=== PATIENT | female | born 1990 | race Caucasian/White ===

== ENCOUNTER 2019-08-12 06:55 | Inpatient (IN) | payer BC, SELFPAY ==
[2017-03-15 10:13] VITALS: BMI 28.0
[2019-08-12] VITALS (20 sets, daily range): BP systolic 101–119; BP diastolic 60–76; PULSE 68–100; RESP 16; TEMP 36.4–37.1; O2SAT 89–97; BMI 28.5
[2019-08-12] MEDS: Lactated Ringers 1,000 ML 50 ML IV (07:30)
[2019-08-12 07:46] LABS: Absolute Lymphocyte Count 1.92 X10^3/uL (0.83-4.51); Absolute Neutrophil Count 10.4 X10^3/uL (2.0-7.7); Basophil# 0.02 X10^3/uL; Basophil% 0.1 % (0-1); Eosinophil# 0.12 X10^3/uL; Eosinophils% 0.9 % (0-5); Hematocrit 35.1 % (37-47); Hemoglobin 11.5 g/dL (12.0-15.0); Lymphocyte # 1.92 X10^3/ul (4.0); Lymphocyte % 14.3 % (19-41); Mean Corp Hgb Conc 32.8 g/dL (32-36); Mean Corpuscular Hgb 27.3 pg (27.0-32.0); Mean Corpuscular Volume 83.4 fL (81-99); Mean Platelet Vol. 10.6 fl (6.2-12.0); Monocyte# 0.84 X10^3/uL; Monocyte% 6.3 % (0-10); NRBC Flagged by Analyzer 0 % (0-5); Neutrophil # 10.44 X10^3/uL (2.7-7.7); Neutrophil % 77.8 % (47-70); Platelet Count 186 K/mm3 (150-450); RBC Distribution Width CV 13.7 % (11.6-14.6); RBC Distribution Width SD 41.4 fl (35.1-43.9); Red Blood Count 4.21 M/mm3 (4.2-5.4); White Blood Count 13.4 K/mm3 (4.4-11.0)
[2019-08-12] MEDS: Oxytocin 30 units/NS 500 ml 30 UNITS/500 ML IV.SOLN IV (09:26)
--- NOTE | 2019-08-12 10:25 | PCM.HP.OB ---
History Date of Admission: 03/15/17 Final JIMENA: 08/15/19 Gestational age: 39 Weeks and 4 Days History of this : This is a 29 year-old, G [], P [], at 39 weeks gestational age. Surgical History: Surgical History (Last Updated 08/12/19 @ 10:[address] Ludwig Abel) Hx of tonsillectomy Z90.89 Allergies gluten Allergy (Verified 08/12/19 07:47) Abd cramps/diarrhea pain, hives, migraines Home Medications: Home Medications Omeprazole [Prilosec] 20 mg PO BID PRN 10/23/15 Vits [Prenatabs FA ] 1 tab PO DAILY 10/23/15 Smoking Status: Never smoker Alcohol: None Number of Fetus(es): 1 NST - FHR Rate Baby A Baseline: 145 Variability:: Moderate Accelerations:: 15 x 15 Uterine Activity:: Q 2-3 minutes History Past Pregnancies: Past Pregnancies Delivery Date Name GA/ Weeks Outcome Route Wt Infant Sex Labor Length Anesthesia Delivery Location Provider FOB Physical Exam Vitals: Vital Signs Temp Pulse BP 97.7 F L 86 119/68 08/12/19 09:58 08/12/19 09:59 08/12/19 09:59 General: Alert, Oriented x3 Abdomen: Soft, Non Tender, Non-Distended, Gravid Neurological: Cranial nerves II-XII grossly intact MATERIAL STRESS TESTER: Normal external genitalia Estimated gestational size: Appropriate for gestational size Presentation: Cephalic Cervix Dilation (cm): 5 - AROM clear fluid Station: -2 Effacement (%): 80 Assessment/Plan This is a 29 year-old, at 39&4 weeks gestational age. Admit to L&D Elective induction - on pitocin, s/p AROM GBS negative Pain - declines epidural at this time EFW - less than 4500g, patient with adequate pelvis Routine care
[2019-08-12] MEDS: Oxytocin 30 units/NS 500 ml 30 UNITS/500 ML IV.SOLN 334 UNITS IV (12:46)
--- NOTE | 2019-08-12 13:21 | PCM.OPRPT ---
Vaginal Delivery Maternal Presentation: Elective Induction Method of Induction: Pitocin, Amniotomy Amniotic Membrane Rupture Type: Artificial Amniotic Fluid Description: Clear Final JIMENA: 08/15/19 Gestational age: 39 Weeks and 4 Days Date of Procedure: 08/12/19 Pre-Operative Diagnosis: Elective induction Post-Operative Diagnosis: Same Surgery/ Procedure Performed: Spontaneous Vaginal Delivery Type of Anesthesia: Local with 1% lidocaine Description of Procedure: Patient prepped & draped in stirrups when C/C/+2. She pushed to deliver the head. Tight nuchal cord clamped & cut. head then gently guided to allow delivery of anterior and posterior shoulders. No excess traction placed on head. Body delivered and infant placed on maternal abdomen. Placenta delivered with gentle traction. Good uterine tone obtained. Presentation: JACINTA Placental Delivery Description: Expressed Placenta Disposition: [facility] Cord Vessel Description: 3 Vessels Cord Entanglement: Around neck x 1, tight Estimated Blood Loss: 300ml Infant A gender: Male - Daxton (1 minute): 8 (5 minute): 9 Episiotomy Description: None Laceration: 2nd degree - perineal - repaired with 3-0 vicryl Medications given after delivery: IV Pitocin Complications: None
[2019-08-12] MEDS: Acetaminophen 500 MG Tablet 1000 MG PO ×2 (13:52→23:07)
[2019-08-12] MEDS: Senna/Docusate Sodium 1 Tablet PO (23:07)
[2019-08-13 04:00] VITALS: BP 95/55; PULSE 59; RESP 16; TEMP 36.9; O2SAT 98
[2019-08-13 07:32] VITALS: BP 98/59; PULSE 83; RESP 16; TEMP 36.6
--- NOTE | 2019-08-13 10:26 | DCINST_ITS ---
Discharge Diet: No Restrictions Discharge Activity: May Drive, May Shower May resume sexual activity in: 6 weeks Weight Bearing Status: Weight bearing as tolerated Additional Instructions: If you experience any of the following, contact your healthcare provider. * Bleeding that soaks a pad every hour for 2 hours * Fever 100.4 or higher * Unrelieved incision or abdominal pain * Swelling, redness, discharge or bleeding from your incision or episiotomy site * Your incision begins to separate * Problems urinating (including inability to urinate or burning while urinating). * Visual changes * Severe headache * Flu-like symptoms * Pain or redness in one of both of your breasts * Pain, warmth, tenderness or swelling in your legs, especially the calf area * Frequent nausea and vomiting * Symptoms of depression or anxiety If you experience any of the following, call 911 or go to the nearest Emergency Room. * Chest pain * Problems breathing * Seizure activity * Partial or complete paralysis of a body part, slurred speech, weakness or drooping of the face, or a sudden inability to walk or hold your balance Allergies/Adverse Reactions: Allergies gluten Allergy (Verified 08/12/19 07:47) Abd cramps/diarrhea pain, hives, migraines Medications to take at Discharge Omeprazole [Prilosec] 20 mg PO BID PRN 10/23/15 Vits [Prenatabs FA ] 1 tab PO DAILY 10/23/15 Acetaminophen [Tylenol] 1,000 mg PO Q8H PRN PRN tablet 08/13/19 Ibuprofen [Motrin] 600 mg PO Q6H PRN PRN tablet 08/13/19 Primary Care Physician: Lito Quinn MD [Primary Care Provider] - Test Results: Test results from this visit will be discussed in further detail at your follow- up appointment, if applicable.
--- NOTE | 2019-08-13 10:26 | PCM.DCVAG ---
Discharge Diet: No Restrictions Discharge Activity: May Drive, May Shower May resume sexual activity in: 6 weeks Weight Bearing Status: Weight bearing as tolerated Additional Instructions: If you experience any of the following, contact your healthcare provider. Bleeding that soaks a pad every hour for 2 hours Fever 100.4 or higher Unrelieved incision or abdominal pain Swelling, redness, discharge or bleeding from your incision or episiotomy site Your incision begins to separate Problems urinating (including inability to urinate or burning while urinating). Visual changes Severe headache Flu-like symptoms Pain or redness in one of both of your breasts Pain, warmth, tenderness or swelling in your legs, especially the calf area Frequent nausea and vomiting Symptoms of depression or anxiety If you experience any of the following, call 911 or go to the nearest Emergency Room. Chest pain Problems breathing Seizure activity Partial or complete paralysis of a body part, slurred speech, weakness or drooping of the face, or a sudden inability to walk or hold your balance Allergies/Adverse Reactions: Allergies gluten Allergy (Verified 08/12/19 07:47) Abd cramps/diarrhea pain, hives, migraines Medications to take at Discharge Omeprazole [Prilosec] 20 mg PO BID PRN 10/23/15 Vits [Prenatabs FA ] 1 tab PO DAILY 10/23/15 Acetaminophen [Tylenol] 1,000 mg PO Q8H PRN PRN tablet 08/13/19 Ibuprofen [Motrin] 600 mg PO Q6H PRN PRN tablet 08/13/19 Primary Care Physician: Lito Quinn MD [Primary Care Provider] - Test Results: Test results from this visit will be discussed in further detail at your follow-up appointment, if applicable.
--- NOTE | 2019-08-13 10:26 | PCM.PN.OB ---
Subjective: Denies complaints - Physical Exam Vitals/I&O's: Vital Signs Temp Pulse Resp BP Pulse Ox 97.9 F 83 16 98/59 L 98 08/13/19 07:32 08/13/19 07:32 08/13/19 07:32 08/13/19 07:32 08/13/19 04:00 Oxygen Delivery Method Room Air Weight: 187 lb 9.6 oz Body Mass Index (BMI) 28.5 Intake and Output for Last 24 Hours 08/11/19 08/12/19 08/13/19 23:59 23:59 23:59 Intake Total 774.73 / 774.73 Balance 774.73 / 774.73 General: Alert, Oriented x3 Abdomen: Soft, Non Tender, Non-Distended - ff mid & below umb Extremities: No Calf Tenderness Neurological: Cranial nerves II-XII grossly intact Laboratory Results 08/12/19 07:30: Blood Type A POSITIVE, Antibody Screen NEGATIVE Current Medications Acetaminophen (Tylenol) 1,000 mg PO Q8H PRN PRN PRN Reason: Pain Score 1-3/10 Last Admin: 08/12/19 23:07 Dose: 1,000 mg Documented by: Bisacodyl (Dulcolax) 10 mg RECTAL UD PRN PRN Reason: If no BM Dibucaine (Dibucaine) 1 applic TOPICAL TID PRN PRN; Protocol PRN Reason: Discomfort Hydrocortisone (Hytone) 1 applic TOPICAL TID PRN PRN; Protocol PRN Reason: Discomfort Ibuprofen (Motrin) 600 mg PO Q6H PRN PRN PRN Reason: Pain Score 1-3/10 Methylergonovine Maleate (Methergine) 0.2 mg IM X1 PRN PRN Reason: Excess bleeding/uterine atony Ondansetron HCl (Zofran) 4 mg IV Q4H PRN PRN PRN Reason: Nausea Oxycodone HCl (Oxyir) 5 - 10 mg PO Q4H PRN PRN PRN Reason: Pain Score 4-10/10 Senna/Docusate Sodium (Senokot-S, Dang-Colace) 1 - 2 tablet PO DAILY PRN PRN PRN Reason: Constipation Last Admin: 08/12/19 23:07 Dose: 2 tablet Documented by: Simethicone (Mylicon) 80 mg PO PCHS PRN PRN Reason: Indigestion/Stomach pain Sodium Chloride () 5 - 15 ml IV UD PRN PRN Reason: SALINE FLUSH Medical Necessity - Tobacco Use Smoking Status: Never smoker Assessment/Plan PPD#1 D/c home per patient request
[2019-08-13 11:55] VITALS: BP 95/68; PULSE 74; RESP 16; TEMP 37.2
[2019-08-13 14:17] VITALS: BP 95/68; PULSE 74; RESP 16; TEMP 37.2
== END 2019-08-13 14:25 | disposition home or self-care (01) | DRG 807 ==
PROVIDERS: Admitting Provider Obstetrics & Gynecology; PCP Family Medicine; Referring Provider Obstetrics & Gynecology; Visit Provider Obstetrics & Gynecology
DX: O69.1XX0 Labor and delivery complicated by cord around neck, with compression, not applicable or unspecified (principal); O70.1 Second degree perineal laceration during delivery; Z3A.39 39 weeks gestation of pregnancy; Z37.0 Single live birth
CPT/HCPCS: 59025; 59050; 85025; 86850; 86900; 86901; 99218; J7120; G0378

== ENCOUNTER 2021-06-25 04:47 | Inpatient (IN) | payer BC, SELFPAY ==
[2021-06-25] VITALS (18 sets, daily range): BP systolic 116–137; BP diastolic 54–86; PULSE 71–98; RESP 16; TEMP 36.6; O2SAT 97–100; BMI 31.6
[2021-06-25] MEDS: 0.9% Saline Lock 10 ML Syringe IV ×3 (04:55→12:02)
[2021-06-25 05:11] LABS: Absolute Lymphocyte Count 2.14 X10^3/uL (0.83-4.51); Absolute Neutrophil Count 7.2 X10^3/uL (2.0-7.7); Basophil# 0.03 X10^3/uL; Basophil% 0.3 % (0-1); Eosinophil# 0.08 X10^3/uL; Eosinophils% 0.8 % (0-5); Hematocrit 35.3 % (37-47); Hemoglobin 12.3 g/dL (12.0-15.0); Lymphocyte # 2.14 X10^3/ul (0.83-4.51); Lymphocyte % 20.8 % (19-41); Mean Corp Hgb Conc 34.8 g/dL (32-36); Mean Corpuscular Hgb 28.8 pg (27.0-32.0); Mean Corpuscular Volume 82.7 fL (81-99); Mean Platelet Vol. 10.9 fl (6.2-12.0); Monocyte% 7.8 % (0-10); NRBC Flagged by Analyzer 0 % (0-5); Neutrophil # 7.15 X10^3/uL (2.7-7.7); Neutrophil % 69.6 % (47-70); Platelet Count 235 K/mm3 (150-450); RBC Distribution Width CV 14.6 % (11.6-14.6); RBC Distribution Width SD 43.8 fl (35.1-43.9); Red Blood Count 4.27 M/mm3 (4.2-5.4); White Blood Count 10.3 K/mm3 (4.4-11.0)
--- NOTE | 2021-06-25 06:48 | HP.PCM.OB_ITS ---
HPI - General General Date of Admission: 06/25/21 HPI Narrative AL CERON, is a 31 F at 40.4 weeks gestation who presents in spontaneous labor. Patient having regular contractions last night. Denies any loss of fluid or vaginal bleeding. Positive but decreased movement. Pr egnancy complicated by anxiety, depression, PTSD, history of eating disorder. She desires unmedicated labor and delivery. Maternal Data Information JIMENA Calculator Estimated Delivery Date Method Current WG Current Estimate 06/21/21 Manual 40w 4d PFSH PFSH Medical History (Updated 06/25/21 @ 07:09 by Melissa Bryson CNM) Anxiety Celiac disease Depression Seasonal allergies Home Medications Prenatabs FA 1 tab PO DAILY 10/23/15 [History Last Taken 06/24/21 08:00] omeprazole 20 mg PO BID PRN 10/23/15 [History Last Taken 06/24/21 14:00] sertraline [Zoloft] 25 mg PO DAILY 06/25/21 [History Last Taken 06/24/21 14:00] Allergy/AdvReac Type Severity Reaction Status Date / Time duloxetine [From Cymbalta] Allergy Other Verified 06/25/21 05:13 gluten Allergy Abd Verified 08/12/19 07:47 cramps/diarrhea Surgical History (Updated 08/12/19 @ 10:[address] Ludwig Abel MD) Hx of tonsillectomy Social History Smoking Status: Never smoker History 2 Elective abortions Hx Para 3 Spontaneous abortions Hx # Term Pregnancies Ectopic pregnancies Hx # Pregnancies Multiple births # of living children NST FHR Rate Baby A Baseline: 140 Variability:: Moderate Accelerations:: 15 x 15 Decelerations:: None NST Reactive:: Yes FHR Category:: Category I Uterine Activity:: 2-4 min ROS Eyes Eyes: Denies blurry vision, change in vision or spots in vision ENT HEENT: Denies dizziness or headache(s) Cardiovascular Cardiovascular: Denies abdominal pain, chest pain or dyspnea Respiratory/Chest Respiratory/Chest: Denies cough, dyspnea, shortness of breath at rest or shortness of breath with exertion Gastrointestinal Gastrointestinal: Denies abdominal pain, diarrhea or vomiting Genitourinary Genitourinary: Denies change in urinary stream, difficulty urinating or dysuria Musculoskeletal Musculoskeletal: Reports none Integumentary Integumentary: Denies rash Neurologic Neurologic: Denies dizziness, headache(s), memory loss or weakness Psychiatric Psychiatric: Reports none Vital Signs Vital Signs Vital Signs: Weight Weight: 205 lb 3.2 oz Body Mass Index (BMI) 31.6 Physical Exam Const alert, oriented x3 and no apparent distress General Appearance: cooperative Orientation / Consciousness: awake Exam Limitations: no limitations HEENT normocephalic Head and Scalp: normal to inspection Eyes General Eye: normal appearance of both eyes Neck full ROM and no lymphadenopathy Lymph Lymphatic: no lymphadenopathy noted Chest inspection of chest normal Resp normal respiratory effort, normal air movement and clear to auscultation bilaterally Effort and Inspection: able to speak in complete sentences and symmetric chest movement Cardio regular rate and regular rhythm GI normal to inspection, nondistended, normoactive bowel sounds Manual OB Exam: presentation cephalic, dilated 5 and effaced 90 Back/Spine normal ROM Extremity full ROM and no calf tenderness Skin no rashes or lesions noted General Skin Exam: no breakdown Neuro oriented x3 and CN's II-XII intact bilaterally Psych mental status grossly normal and thought process normal Labs Labs Labs: Blood Type A POSITIVE Antibody Screen NEGATIVE Hct 35.3 % (37-47) L Hgb 12.3 g/dL (12.0-15.0) Rhogam given: No Miscellaneous Test . Rubella - immune HB- neg HC- neg HIV- NR RPR- NR GBS- negative Assessment & Plan (1) Spontaneous onset of labor: (2) 40 weeks gestation of : (3) PTSD (post-traumatic stress disorder): (4) Eating disorder: QUALIFIERS: Eating disorder type: binge eating disorder Qualified Code(s): F50.81 - Binge eating disorder (5) Depression: QUALIFIERS: Depression Type: unspecified Qualified Code(s): F32.A - Depression, unspecified (6) Anxiety: PLAN: CE- / bulging bag Admit to labor and delivery Cat. 1 tracing, NST reactive Routine labs IA Pain medication / Nitrous oxide if desires GBS negative Anticipate Dr. Beltre notified and is collaborating physician
[2021-06-25] MEDS: Oxytocin 30 units/NS 500 ml 30 UNITS/500 ML IV.SOLN 334 UNITS IV (09:22)
[2021-06-25] MEDS: Acetaminophen 500 MG Tablet PO (11:20)
--- NOTE | 2021-06-25 12:05 | EX.PCM.OBRPT ---
Assessment & Plan (1) Laceration, obstetrical, second degree: (2) Shoulder dystocia during labor and delivery, delivered: (3) (spontaneous vaginal delivery): Maternal Data Information JIMENA Calculator Estimated Delivery Date Method Current WG Current Estimate 06/21/21 Manual 40w 4d Vaginal Delivery Maternal Presentation Maternal Presentation: Active Labor Operative Information Date of Procedure: 06/25/21 Pre-Operative Diagnosis: Spontaneous labor, Term gestation Post-Operative Diagnosis: , Live male infant Surgery / Procedure Performed: Spontaneous Vaginal Delivery Type of Anesthesia: Local with 1% Lidocaine Estimated Blood Loss: 400 Time of Delivery: :19 Findings Description of Procedure: Provided labor support. Patient feeling urge to bear down. Complete dilation. Patient pushing involuntarily while in semi-guajardo position. With minimal maternal effort head delivered. Tight nuchal cord noted. Infant shoulder not forthcoming. Patient immediately repositioned to supine with Samia maneuver. Anterior shoulder delivered and rest of body delivered via somersault maneuver. Cord around body x 1 loose. Vigorous male placed on maternal abdomen and attended to by nursing staff. Pitocin IV started for active management of the third stage of labor. Cord clamped and cut after 5 minute delay by FOB and placed skin to skin with patient. Placenta delivered spontaneously and intact. Bleeding minimal. Second degree perineal laceration repaired in usual fashion using Vicryl Rapid 3-0 after administration of local anesthesia. Hemostasis obtained. Fundus firm 2 below U. Vaginal sweep completed by me. EBL 400 cc. APGARS 8/9. Patient and bonding at this time. Dr. Beltre notified of delivery. Presentation: Vertex Amniotic Membrane Rupture Type: Artificial Time of Membrane Rupture: 731 Amniotic Fluid Description: Clear Placental Delivery Description: Spontaneous Placenta Disposition: [facility] Cord Vessel Description: 3 Vessels Cord Entanglement: Around neck x 1, tight and - (Around body x1 loose) Nuchal Cord Compression: Without compression Infant A Gender: Male (1 minute): 8 (5 minute): 9 Delayed Cord Clamping: Yes Post Vaginal Delivery Medications Given After Delivery: IV Pitocin Episiotomy Description: None Laceration: 2nd degree Complication Complications: None
[2021-06-25] MEDS: Naproxen 500 MG Tablet PO (15:45)
[2021-06-25] MEDS: Senna/Docusate Sodium 1 Tablet PO (15:45)
[2021-06-25] MEDS: Acetaminophen 500 MG Tablet 1000 MG PO (21:06)
[2021-06-26] VITALS (10 sets, daily range): BP systolic 116–131; BP diastolic 56–78; PULSE 63–101; RESP 14–16; TEMP 36.3–36.8; O2SAT 97–99
--- NOTE | 2021-06-26 07:17 | PCM.PN.OB ---
Subjective Subjective Patient seen at bedside. Feeling good. Ambulating and voiding without difficulty. Denies any pain. Difficulty with latching but expressing and feeding via spoon. Lochia minimal. Desires discharge home later today. Objective Data Objective Data Vital Signs: Vital Signs Temp Pulse Resp BP Pulse Ox 98.2 F 78 14 120/74 99 06/26/21 04:00 06/26/21 04:00 06/26/21 04:00 06/26/21 04:00 06/26/21 04:00 Oxygen Delivery Method Room Air Weight: 205 lb 3.2 oz Body Mass Index (BMI) 31.6 Intake & Output: Intake and Output for Last 24 Hours 06/24/21 06/25/21 06/26/21 23:59 23:59 23:59 Intake Total 500 / 500 Output Total 900 / 900 Balance -400 / -400 Lab / Micro Data Result Diagrams: 06/25/21 04:55 Micro: Microbiology 06/25/21 05:11 Nasal Secretion SARS-CoV-2 Antigen (Rapid) - Final ROS Eyes Eyes: Denies blurry vision, change in vision or spots in vision ENT HEENT: Denies dizziness or headache(s) Cardiovascular Cardiovascular: Denies abdominal pain, chest pain or dyspnea Respiratory/Chest Respiratory/Chest: Denies cough, dyspnea, shortness of breath at rest or shortness of breath with exertion Gastrointestinal Gastrointestinal: Denies abdominal pain, diarrhea or vomiting Genitourinary Genitourinary: Denies change in urinary stream, difficulty urinating or dysuria Musculoskeletal Musculoskeletal: Reports none Integumentary Integumentary: Denies rash Neurologic Neurologic: Denies dizziness, headache(s), memory loss or weakness Physical Exam Const alert and no apparent distress General Appearance: cooperative and comfortable Exam Limitations: no limitations HEENT normocephalic Eyes General Eye: normal appearance of both eyes Neck full ROM General: normal visual inspection Chest Chest: symmetrical chest wall rise Resp normal respiratory effort and normal air movement Effort and Inspection: symmetric chest movement Auscultation: clear to auscultation bilaterally Cardio regular rate and regular rhythm GI normal to inspection, nondistended, normoactive bowel sounds Back/Spine normal ROM Extremity full ROM and no calf tenderness General Extremity: normal exam except as noted Skin no rashes or lesions noted Neuro CN's II-XII intact bilaterally Psych mental status grossly normal Assessment & Plan (1) (spontaneous vaginal delivery): (2) Laceration, obstetrical, second degree: (3) Eating disorder: QUALIFIERS: Eating disorder type: binge eating disorder Qualified Code(s): F50.81 - Binge eating disorder (4) PTSD (post-traumatic stress disorder): (5) Depression: QUALIFIERS: Depression Type: unspecified Qualified Code(s): F32.A - Depression, unspecified (6) Anxiety: PLAN: PP #1 Routine care support Social service consult due to history Discharge home with follow up in office
--- NOTE | 2021-06-26 07:21 | PCM.DC ---
Discharge Instructions Diet Discharge Diet: No restrictions Activity May resume sexual activity in: 6-8 weeks Weight Bearing Status: Weight bearing as tolerated Dressing / Incision Call your doctor if you observe: Fever of 101 or Higher, Inability to urinate, Using more than 1 pad per hour, Shortness of breath, Chest pain, Calf discomfort and Uncontrolled pain Follow Up Care Please Follow Up With: Melissa Bryson CNM When: 2 weeks virtual visit/ 6 weeks in office Test Results: Test results from this visit will be discussed in further detail at your follow-up appointment, if applicable. Discharge Plan Admission Admit Date/Time: 06/25/21 04:47 Primary Reason for Your Visit: Labor and delivery Attending Provider: Melissa Bryson Primary Care Provider: Lito Quinn Discharge Orders/Prescriptions Prescriptions: Continued Prenatabs FA 1 TABLET tablet 1 tab PO DAILY RF: 0 sertraline [Zoloft] 25 mg Tablet 25 mg PO DAILY RF: 0 No Action omeprazole 20 MG capsule 20 mg PO BID PRN (Reason: Heartburn Or Indigestion) RF: 0 Referrals / Follow Up: Lito Quinn MD [Primary Care Provider] - Disposition Disposition (needs filled in before D/C Order can be placed): Home, Self Care
[2021-06-26] MEDS: Naproxen 500 MG Tablet PO (08:02)
[2021-06-26] MEDS: Senna/Docusate Sodium 1 Tablet PO (08:13)
--- NOTE | 2021-06-26 11:10 | CASEMGMT ---
Social Work Assessment Labor and Delivery Unit Date of Referral: 06/25/2021 Time of Referral: 13:11 Referred By: Melissa Bryson CNM Date of Intervention: 06/26/2021 Time of Intervention: 11:10 Reason for Referral: Mother of baby (MOB) with history of anxiety, depression, and PTSD History obtained from: MOB, Chart, nursing staff. Household composition: MOB, FOB, Juan Pablo Billy, Galindo Billy (: 11/03/15), Jazz Billy (: 03/15/2017), Tg Billy (: 08/12/2019) and now this infant, Aniket Billy (: 06/25/2021). Housing is adequate. Patient's parent/guardian status: MOB and FOB have been for 10 years and in a relationship since high school. MOB reports that was not planned but not avoided and has been accepted. Medical History: MOB with history prior to this infant being born. MOB with appropriate care. MOB with vaginal delivery at 40 weeks on 06/25/2021. This infant with apgars of 8 and 9 at 1min and 5min. to follow with Dr. Vaz in the community. MOB reports plans to breastfeed infant and that is ?going well.? Educational Status: MOB denies issues with comprehension or understanding. Up until a year ago MOB was working at a [employer]. 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 Supplies: MOB reports to have needed infant supplies including a crib and car seat. Childcare/Caregiver(s): MOB plans to be primary caregiver for infant. Other children are currently with MOB?s parents while MOB, FOB and infant are at the hospital. Transportation: MOB denies issues/concerns with transportation. Programs/Agencies Involved: MOB reports to be active with counseling services through [facility] and to see Corei Melo for individual counseling. MOB reports that MOB and FOB are engaged in marriage counseling through [facility]. No further community involvement. Children Services/Legal Issues: MOB denies history of children services or legal issues. Mental Health History: MOB reports diagnosis of Depression, Anxiety, PTSD and an eating disorder. MOB reports to be managing mental health with Zoloft. MOB reports that therapy helps MOB manage mental health. MOB reports to have had anxiety after second child was born and had difficulty leaving second born. MOB does reports history of suicidal thoughts. MOB denies current suicidal thoughts or history of suicide attempts/plans. This psychotherapist social worker able to engage in conversation with MOB about signs and symptoms of depression and anxiety. MOB reports to have needed support in the community and to feel that MOB is able to reach out to family or counselor for support if MOB would start to have sign/symptoms of depression/anxiety. MOB plans to see counselor every other week and can increase to weekly ?if needed.? Substance Use History: MOB denies. PHQ9: Did not trigger. Family/Social Stressors: MOB reports to have found out in 2020 that FOB has a ?sex addiction.? MOB reports to have been in a ?dark spot? after discovering FOB sex addiction ?for pretty much our whole relationship.? MOB reports ?I think the saved me.? MOB reports to have wanted to be ?okay for the baby.? Support Systems: MOB reports support from MOB?s parents and family. MOB reports to have support from FOB but to ?still be working through things.? Depression and Anxiety/Shaken Baby/Safe Sleeping: This psychotherapist social worker provided MOB with resources on signs and symptoms of depression/anxiety, safe sleeping, shaken baby, and [facility] general resources as well as local counseling agencies. ASSESSMENT: This psychotherapist social worker met with MOB and in room. Introduced self and psychotherapist social worker role. MOB agreeable to speak with this psychotherapist social worker. FOB present in room when this psychotherapist social worker entered. This psychotherapist social worker asked for FOB to leave during assessment, FOB leaving willingly. When this psychotherapist social worker entered the room FOB sitting on bed with infant and appeared to be gazing at infant. FOB then left room and MOB went to sit on bed with . MOB reports that ?the beds here are hard to sit in all the time.? MOB reports to have a connection with . MOB reports main concern on returning to home is ?how everything will work out.? MOB reports to believe that ?things have been doing well? with MOB and FOB since MOB and FOB have started counseling and ?working through everything.? MOB reports to be ?anxious? about ?big transitions? as ?they cause stress.? MOB reports that FOB has been doing ?so well? with working through sex addiction and to have a sponsor. MOB reports concern that ?things will get hard? in the transition to a family of 4 to 5. This psychotherapist social worker acknowledging MOB?s concerns and encouraged MOB to bring these concerns up in marriage and individual counseling. MOB reports to have a positive relationship with counselor and that marriage counseling has been going ?well.? MOB denies any other concerns on returning to home. MOB denies concerns of FOB abusing children in anyway and reports that FOB has a ?healthy? relationship with children. MOB does report that ?if things get rough? that MOB and children are able to move in with MOB?s parents ?if needed.? This psychotherapist social worker provided active listening and support throughout conversation. PLAN: to discharge to home with MOB and FOB. No other services requested or indicated. Mariluz ROACH, LEANDRO-S
--- NOTE | 2021-06-26 14:19 | NURSING ---
circ care reviewed
--- NOTE | 2021-07-01 13:56 | NURSING ---
Follow up phone call done, patient reports she and the baby are doing very well and states her bleeding is light now. Denies help and reports to being very satisfied with her care here.
== END 2021-06-26 15:20 | disposition home or self-care (01) | DRG 807 ==
LOC: WPOUT 04:48 → WP 04:48
PROVIDERS: Advanced Practice Midwife; Admitting Provider Advanced Practice Midwife; PCP Family Medicine; Visit Provider Advanced Practice Midwife
DX: O36.8130 Decreased fetal movements, third trimester, not applicable or unspecified (principal); O70.1 Second degree perineal laceration during delivery; O69.1XX0 Labor and delivery complicated by cord around neck, with compression, not applicable or unspecified; O66.0 Obstructed labor due to shoulder dystocia; Z20.822 Contact with and (suspected) exposure to COVID-19; O99.344 Other mental disorders complicating childbirth; F50.81 Binge eating disorder; F32.A Depression, unspecified; F41.9 Anxiety disorder, unspecified; F43.10 Post-traumatic stress disorder, unspecified; Z3A.40 40 weeks gestation of pregnancy; Z79.899 Other long term (current) drug therapy; Z37.0 Single live birth
CPT/HCPCS: 59025; 59050; 85025; 86850; 86900; 86901; 87426; 99218; A4216; G0378